=== PATIENT | male | born 1995 | race Caucasian/White ===

== ENCOUNTER 2018-07-11 01:31 | Emergency (ER) | payer SELFPAY ==
[2018-07-11 01:33] VITALS: BP 127/90
--- NOTE | 2018-07-11 01:39 | ER Report ---
History and Physical Time Seen By MD: 01:34 HPI/ROS CHIEF COMPLAINT: Group Home clearance HISTORY OF PRESENT ILLNESS: 23-year-old male brought in by police for correction clearance. Patient voices no complaints. He has slurred speech and affect consistent with alcohol intoxication. She denies any significant past medical history REVIEW OF SYSTEMS: Respiratory: No cough, no dyspnea. Cardiovascular: No chest pain, no palpitations. Gastrointestinal: No vomiting, no abdominal pain. Musculoskeletal: No back pain. Reviewed Nurses Notes: Yes Old Medical Records Reviewed: Yes Constitutional Vital Sign - Last 24 Hours 07/11/18 01:33 Temp 98.1 Pulse 117 Resp 18 B/P (MAP) 127/90 Pulse Ox 94 O2 Delivery Room Air Physical Exam General Appearance: The patient is alert, has no immediate need for airway protection and no current signs of toxicity. Palpation of the head and neck reveal no tenderness or trauma HEENT: Pupils equal and round no injection. TMs normal, oropharynx without redness or exudate, mucous. Membranes are moist Respiratory: Chest is non tender, lungs are clear to auscultation. Cardiac: regular rate and rhythm Gastrointestinal: Abdomen is soft and non tender, no masses, bowel sounds normal. Musculoskeletal: Neck: Neck is supple and non tender. Extremities have full range of motion and are non tender. Skin: No rashes or lesions. DIFFERENTIAL DIAGNOSIS: After history and physical exam differential diagnosis was considered for alcohol intoxication, correction clearance, polysubstance abuse Medical Decision Making ED Course/Re-evaluation ED Course Patient was admitted to an examination room. H&P was done. The differential diagnosis was considered. On clinical examination. Patient has no findings. His vital signs are stable. He voices no complaints. He is medical cleared for correction admission. Decision to Disposition Date: Jul 11, 2018 Decision to Disposition Time: 01:36 Depart Departure Latest Vital Signs Vital Signs Date Time Temp Pulse Resp B/P (MAP) Pulse Ox O2 Delivery O2 Flow Rate FiO2 07/11/18 01:33 98.1 117 18 127/90 94 Room Air Impression: Primary Impression: Medical clearance for incarceration Additional Impression: Alcohol intoxication Condition: Improved Disposition: [facility] TO RESIDENTIAL/CORRECTIONAL F Patient Instructions: Alcohol Intoxication (ED) Additional Instructions: Medically cleared for correction admission Problem Qualifiers Additional Impression: Alcohol intoxication Complication of substance-induced condition: uncomplicated Qualified Codes: F10.920 - Alcohol use, unspecified with intoxication, uncomplicated NIRU MACDONALD DO Jul 11, 2018 01:39
== END 2018-07-11 01:47 ==
LOC: ER 01:40
DX: F10.920 Alcohol use, unspecified with intoxication, uncomplicated (principal)
CPT/HCPCS: 99281